=== PATIENT | female | born 1950 | race Caucasian/White ===

== ENCOUNTER → 2021-02-24 | Outpatient (CLI) | payer MEDICARE ==
[2021-01-01 14:28] VITALS: BP 110/73
[~2021-02-24] MED LIST: ACET325T9 PO; ALBU2.5V14 NEB; AMIO200T53 PO; ASPI-886 PO; CHOL10004 PO; CRESTOR40 MG PO; DEXL60CA2 PO; DIPH25CA58 PO; FAMO20TA5 PO; FURO20TA3 PO; FURO40TA4 PO; HYDR-2761 PO; IBUP-1060 PO; LEVO25TA4 PO; LIPITOR80 MG PO; POTA20TA4 PO; SERT50TA PO; TRAZ150T49 PO; UMEC62.5 IH; VENTOLIN HFA18 GM INH; VERA240C2 PO
== END ==
LOC: LAB 11:09
PROVIDERS: ATTEND Surgery
DX: Z01.812 Encounter for preprocedural laboratory examination (principal); Z20.822 Contact with and (suspected) exposure to COVID-19
CPT/HCPCS: U0003; U0005

== ENCOUNTER 2021-02-26 10:46 | Day surgery (SDC) | payer MEDICARE ==
[~2021-02-26] VITALS: Ht 149.9 cm; Wt 85.0 kg
[~2021-02-26 10:46] MED LIST changes: +IV RINGERS,LACTATED 1000ML 1,000 ML IV SCH; +PROCHLORPERAZINE 10 MG/2 ML VIAL. IVP PRN; +fentaNYL PF VIAL 100 MCG/2 ML VIAL IVP PRN
[2021-02-26 11:39] VITALS: BP 152/84
[2021-02-26] MEDS ORDERED: PROPOFOL 10 MG/ML (20ML) VIAL. IV ONE (12:05)
[2021-02-26] MEDS ORDERED: LIDOCAINE 2% PF 5 ML VIAL. ONE (12:05)
[2021-02-26] MEDS ORDERED: fentaNYL PF VIAL 100 MCG/2 ML VIAL ONE (12:06)
--- NOTE | 2021-02-26 12:36 | PDOC1 ---
History and Physical Date of Admission Date of Admission DATE: 02/26/21 TIME: 12:32 Identification/Chief Complaint Chief Complaint RLE non healing wound Source Source: Chart review, Patient History of Present Illness History of Present Illness 70 yo F s/p CABG with vein harvest of BLE. Pt has noted BLE since surgery and has had opening of RLE wound. She has been followed in wound care and deemed to be best served by debridement of wound. She does note pain in area. Past Medical History Cardiovascular: HTN, Hyperlipidemia Pulmonary: COPD, Other CENTRAL NERVOUS SYSTEM: Other GI: GERD, Hemorrhoids Hepatobiliary: No pertinent hx Psych: No pertinent hx, Other Musculoskeletal: low back pain, Osteoarthritis Rheumatologic: No pertinent hx Infectious disease: No pertinent hx Endocrine: Hypothyroidism Past Surgical History Past Surgical History: Cholecystectomy, , Total knee replacement, Other Family History Family History: Hypertension Social History ALCOHOL: none Drugs: None Current Medications Current Medications Current Medications Fentanyl Citrate (Fentanyl 2ml Vial) 25 mcg PRN Q5MIN PRN IVP MILD PAIN 1-3; Start 02/26/21 at 06:00; Stop 02/27/21 at 05:59 Fentanyl Citrate (Fentanyl 2ml Vial) 50 mcg PRN Q5MIN PRN IVP MODERATE PAIN 4- 6; Start 02/26/21 at 06:00; Stop 02/27/21 at 05:59 Ringer's Solution 1,000 ml @ 30 mls/hr Q24H IV Last administered on 02/26/21at 11:41; Start 02/26/21 at 06:00; Stop 02/26/21 at 17:59 Prochlorperazine Edisylate (Compazine) 5 mg PACU PRN PRN IVP NAUSEA, MRX1; Start 02/26/21 at 06:00; Stop 02/27/21 at 05:59 Cefazolin Sodium/ Dextrose 50 ml @ 100 mls/hr 1X PREOP PRN IV PRIOR TO PROCEDURE; Start 02/26/21 at 06:00; Stop 02/26/21 at 18:00 Propofol (Diprivan) 200 mg STK-MED ONCE IV ; Start 02/26/21 at 12:05; Stop 02/26/21 at 12:06; Status DC Lidocaine HCl (Lidocaine Pf 2% Vial) 5 ml STK-MED ONCE .ROUTE ; Start 02/26/21 at 12:05; Stop 02/26/21 at 12:06; Status DC Fentanyl Citrate (Fentanyl 2ml Vial) 100 mcg STK-MED ONCE .ROUTE ; Start 02/26/21 at 12:06; Stop 02/26/21 at 12:06; Status DC Active Scripts Active Reported Hydrocodone-Apap 5-325 (Hydrocodone Bit/Acetaminophen) 1 Tab Tablet 1 Tab PO PRN Q6HRS PRN Furosemide 20 Mg Tablet 20 Mg PO HS Famotidine 20 Mg Tablet 20 Mg PO DAILY Lipitor (Atorvastatin Calcium) 80 Mg Tablet 80 Mg PO HS Amiodarone Hcl 200 Mg Tablet 200 Mg PO DAILY Ventolin Hfa Inhaler (Albuterol Sulfate) 18 Gm Hfa.aer.ad 2 Puff INH PRN QID PRN Zoloft (Sertraline Hcl) 50 Mg Tablet 50 Mg PO DAILY Tylenol (Acetaminophen) 325 Mg Tablet 650 Mg PO Q6HRS Vitamin D3 (Vitamin D) 25 Mcg Tablet 50 Mcg PO DAILY 1,000 UNITS = 25 MCG Aspirin Ec (Aspirin) 81 Mg Tablet. 81 Mg PO DAILY Potassium Chloride (Potassium Chloride) 20 Meq Tablet.er 20 Meq PO DAILY Incruse Ellipta (Umeclidinium [place]) 62.5 Mcg Blst.w.dev 62.5 Mcg IH DAILY Dexilant (Dexlansoprazole) 60 Mg Cap.mp 1 Cap PO DAILY 30 Days Furosemide 40 Mg Tablet 1 Tab PO DAILY Levothyroxine Sodium 25 Mcg Tablet 1 Tab PO DAILY Allergies Allergies: Coded Allergies: caffeine (Verified Allergy, Intermediate, 02/26/21) chocolate flavor (Verified Allergy, Intermediate, 02/26/21) egg (Verified Allergy, Intermediate, 02/26/21) morphine (Verified Allergy, Intermediate, 02/26/21) ROS Musculoskeletal: Yes Swelling In: (BLE) Physical Exam General: Alert, Oriented X3, Cooperative, No acute distress, Other (obese) HEENT: Atraumatic Lungs: Normal air movement Abdomen: Soft Extremities: Other (well healed lower extremities incision except for RLE calf medial wound, 5 cm diameter with slough) Vitals Vitals Vital Signs Date Time Temp Pulse Resp B/P (MAP) Pulse Ox O2 Delivery O2 Flow Rate FiO2 02/26/21 11:39 99.0 84 20 94 99.0 02/26/21 11:29 152/84 Nasal Cannula 2 VTE Prophylaxis Ordered VTE Prophylaxis Devices: Yes VTE Pharmacological Prophylaxi: No Assessment/Plan Assessment/Plan Non healing RLE wound TO OR for debridement. R/R/B/A d/w pt. Risks, including, but not limited to: bleeding, infection, d amage to surrounding structures, risk of anesthesia. She appears to understand, her questions are answered and she elects to proceed. Justifications for Admission Other Justification LEELEE PANTOJA MD Feb 26, 2021 12:36
[2021-02-26] MEDS ORDERED: PHENYLEPHRINE in 0.9% NACL PF 1 MG/10 ML SYRINGE. IV ONE (12:41)
[2021-02-26] MEDS ORDERED: ONDANSETRON PF 4 MG/2 ML VIAL. ONE (12:45)
[2021-02-26] MEDS ORDERED: SEVOFLURANE 31 TO 60 MINUTES. IH ONE (12:57)
--- NOTE | 2021-02-26 13:47 | PDOC4 ---
OPERATIVE NOTE Date: Date: Feb 26, 2021 Pre-Op Diagnosis: Right lower extremity non healing wound Post-Op Diagnosis: same Procedure Performed: incisional debridement of skin of wound Surgeon: Vito Pantoja Anesthesia Type: GETA Blood Loss: minimal Specimans Obtained: debris of wound Findings: 5 cm diameter RLE non healing wound, fibrinous debris, clean underlying granulation tissue Complications: none Operative Note: After obtaining informed consent, patient was taken to OR, induced under GETA and prepped in the usual fashion. RLE wound was evaluated and debrided of fibrinous debris. This was sent to pathology. Underlying granulation tissue was clean. Iodoform gauze was placed. Dressing was placed over. CAROL wrap placed. Patient tolerated procedure well and sent to PACU in stable condition. All counts correct. Wound class is 4. LEELEE PANTOJA MD Feb 26, 2021 13:47
[2021-02-26 13:55] VITALS: BP 154/84
--- NOTE | 2021-03-01 17:06 | PATHOLOGY ---
[facility] Accession Number: [id number] . 01 Material submitted: . leg - RIGHT LOWER LEG WOUND TISSUE. Modifiers: right, lower . 01 Clinical history: . RIGHT LOWER LEG NON HEALING WOUND DEBRIDMENT RIGHT CALF ULCER . 02 Diagnosis: Right lower leg wound debridement: - Segments of fibrinous and acute necroinflammatory exudate, and granulation tissue showing acute and chronic inflammation. (JPM:nayeli; 03/01/2021) [facility] 03/01/2021 1413 Local . 02 Electronically signed: . Ki No MD, Pathologist NPI- [id number] . 01 Gross description: . Received in formalin labeled "Natasha Mcguire, right lower leg wound tissue" are multiple tate-brown friable soft tissue fragments measuring in aggregate 3.0 x 1.7 x 0.3 cm. The specimen is submitted entirely in A1. ([facility]; 02/28/2021) [facility] 02/28/2021 1129 Local . 02 Pathologist provided ICD-10: L92.8, M79.9 . 02 CPT . 540027 Specimen Comment: A courtesy copy of this report has been sent to [phone], [phone] Specimen Comment: [id number] Specimen Comment: Report sent to / DR GAMBOA Specimen Comment: A duplicate report has been generated due to demographic updates. Performed at: 01 [facility] [address] [id number] MD Simon Kessler MD Phone: [phone] Performed at: 02 [facility] [address] [place], [place] [id number] MD Ki No MD Phone: [phone]
== END 2021-02-26 14:25 | disposition home or self-care (01) ==
LOC: SURG 10:46
PROVIDERS: ATTEND Surgery
DX: L97.919 Non-pressure chronic ulcer of unspecified part of right lower leg with unspecified severity (principal); L92.8 Other granulomatous disorders of the skin and subcutaneous tissue; T81.89XA Other complications of procedures, not elsewhere classified, initial encounter; M79.9 Soft tissue disorder, unspecified; I10 Essential (primary) hypertension; J44.9 Chronic obstructive pulmonary disease, unspecified; E78.5 Hyperlipidemia, unspecified; K21.9 Gastro-esophageal reflux disease without esophagitis; M19.90 Unspecified osteoarthritis, unspecified site; E03.9 Hypothyroidism, unspecified; F17.210 Nicotine dependence, cigarettes, uncomplicated; Z90.49 Acquired absence of other specified parts of digestive tract; Z98.890 Other specified postprocedural states; Z79.899 Other long term (current) drug therapy; Z79.82 Long term (current) use of aspirin; Z88.8 Allergy status to other drugs, medicaments and biological substances
CPT/HCPCS: 11043; 88304; A4930; A6253; A6402; A6450; J0690; J2370; J2405; J2704; J3010